=== PATIENT | male | born 1970 | race Caucasian/White ===

== ENCOUNTER 2024-01-25 09:46 | Day surgery (SDC) | payer BC ==
[2024-01-24 11:24] VITALS: BMI 35.9
[2024-01-25 10:31] VITALS: TEMP 97.8
[2024-01-25] MEDS: LACTATED RINGERS 1,000 ML IV SCH (10:38)
[2024-01-25] MEDS: IV FLUID CONTINUATION 1,000 ML IV ONE (10:39)
[2024-01-25] MEDS ORDERED: PROPOFOL 10 MG/ML 20 ML VIAL IV ONE (11:05)
--- NOTE | 2024-01-25 11:17 | P.PCN ---
Date of Procedure: 01/25/24 Procedure(s) Performed: BRIEF HISTORY: Patient is a 53-year-old pleasant right male scheduled for an elective colonoscopy as a part of painful colon cancer. PROCEDURE PERFORMED: Colonoscopy with snare polypectomy. PREOPERATIVE DIAGNOSIS: Screening for colon cancer. IV sedation per Anesthesia. PROCEDURE: After informed consent was obtained, the patient, was brought into the endoscopy unit. IV sedation was administered by Anesthesia under continuous monitoring. Digital rectal examination was normal. Initially the Olympus CF-160 flexible video colonoscope was then inserted in the rectum, gradually advanced into the cecum without any difficulty. Careful examination was performed as the scope was gradually being withdrawn. Ileocecal valve and the appendiceal orifice were visualized and appeared normal. Prep was excellent. Mucosa of the cecum had an 8 mm cecal polyp that was removed by cold snare polypectomy. Rest of the, ascending colon, transverse colon, descending colon, sigmoid colon, and rectum appeared normal. Retroflexion was performed in the rectum and no lesions were seen. Scattered sigmoid diverticulosis. The patient tolerated the procedure well. IMPRESSION: 8 mm cecal polyp status post cold snare polypectomy Scattered sigmoid diverticulosis RECOMMENDATIONS: Findings of this examination were discussed with the patient as well as his family. He was advised to follow-up with the biopsy results. If the biopsies revealed adenoma he can have repeat colonoscopy in 5 years...
[2024-01-25 11:25] VITALS: RESP 16
[2024-01-25 11:39] VITALS: BP 133/87; PULSE 66
== END 2024-01-25 12:08 | disposition home or self-care (01) ==
LOC: ORWHC2ENDO 09:46
PROVIDERS: ATTEND Internal Medicine Gastroenterology
DX: Z12.11 Encounter for screening for malignant neoplasm of colon (principal); D12.0 Benign neoplasm of cecum; K57.30 Diverticulosis of large intestine without perforation or abscess without bleeding; E78.5 Hyperlipidemia, unspecified; G47.33 Obstructive sleep apnea (adult) (pediatric); F41.9 Anxiety disorder, unspecified; E66.9 Obesity, unspecified; Z68.32 Body mass index [BMI] 32.0-32.9, adult; Z79.02 Long term (current) use of antithrombotics/antiplatelets; Z79.899 Other long term (current) drug therapy
CPT/HCPCS: 88305; 45385; J2704